=== PATIENT | female | born 1965 | race African-American/Black ===

== ENCOUNTER 2020-06-22 17:08 | Emergency (ER) | payer OTHER ==
[~2020-06-22] VITALS: Ht 170.2 cm; Wt 64.0 kg
[2020-06-22] MEDS ORDERED: ACETAMINOPHEN 325MG TABLET PO STA (18:21)
[2020-06-22] MEDS ORDERED: SODIUM CHLORIDE 0.9% 1000ML BAG (SEPSIS BOLUS) IV ONE (18:30)
[2020-06-22 19:36] LABS: BASOPHILS % 0.5 % (0.0-2.0); EOSINOPHILS % 0.8 % (0.0-5.0); HEMATOCRIT. 43.3 % (36.0-48.0); HEMOGLOBIN. 14.6 g/dL (12.0-16.0); LYMPHOCYTES % 34.7 % (20.0-50.0); MEAN CORPUSCULAR HEMOGLOBIN 30.6 pg (28.0-32.0); MEAN CORPUSCULAR VOLUME 90.8 fL (81.0-99.0); MEAN PLATELET VOLUME 7.1 fl (7.4-10.4); MONOCYTES % 4.9 % (2.0-8.0); NEUTROPHILS % 59.1 % (40.0-76.0); PLATELET 330 x1000/uL (130-400); RED BLOOD CELL COUNT 4.76 mill/uL (4.2-5.4); RED CELL DISTRIBUTION WIDTH 14.7 % (11.6-14.6)
[2020-06-22 19:40] LABS: CHLORIDE 110 mEq/L (98-107)
[2020-06-22 19:52] LABS: PROTHROMBIN TIME 10.5 sec (9.6-11.0)
[2020-06-22] MEDS ORDERED: ONDANSETRON HCL 4MG/2ML INJ IV STA (20:06)
[2020-06-22] MEDS ORDERED: MORPHINE SULFATE 4 MG/ML CPJ (NOT FOR IM USE) IV STA (20:06)
[2020-06-22 22:29] VITALS: BP 130/77
== END 2020-06-22 22:20 | disposition home or self-care (01) ==
LOC: ER 17:08 → EDBEDREQ 18:27 → EDBEDREQTM 18:27 → ER 22:20 → CANBEDREQ 06-23 02:09
DX: K57.30 Diverticulosis of large intestine without perforation or abscess without bleeding (principal); K43.9 Ventral hernia without obstruction or gangrene; J45.909 Unspecified asthma, uncomplicated; F17.210 Nicotine dependence, cigarettes, uncomplicated; F14.10 Cocaine abuse, uncomplicated; Z98.890 Other specified postprocedural states; Z90.710 Acquired absence of both cervix and uterus
CPT/HCPCS: 36415; 71045; 74176; 80053; 83605; 84145; 84484; 85025; 85610; 86850; 86900; 86901; 87040; 93005; 96361; 96374; 96375; 99285; J2270; J2405; J7030